=== PATIENT | male | born 1940 | race Caucasian/White ===

== ENCOUNTER → 2016-07-08 | Day surgery (SDC) | payer MEDICARE, OTHER ==
[~2016-07-08] MED LIST: ADVA115A PO; ASPI81 PO; ATEN-102 PO; BETH10 PO; DEXI30CA2 PO; DIOV320T PO; HYDR50TA5 PO; LACTATED RINGER'S 1000 ML INJ 1,000 ML ONE; LOTR10CA PO; ONABOTULINUMTOXINA INJ 100 UNITS/VIAL ONE; PROPOFOL 200 MG/20 ML AMP IV ONE; RANI150T PO; RAPA8CAP OR; SODIUM CHLORIDE 0.9% INJ 10 ML ONE; VENTAER INH
== END | disposition home or self-care (01) ==
LOC: ESDC 10:33
PROVIDERS: ATTEND Internal Medicine Gastroenterology
DX: R13.10 Dysphagia, unspecified (principal); K63.89 Other specified diseases of intestine; K22.2 Esophageal obstruction; K31.84 Gastroparesis; K44.9 Diaphragmatic hernia without obstruction or gangrene
CPT/HCPCS: 00740; 43236; 43239; 43248; 88305; J0585; J3010; J7120

== ENCOUNTER → 2017-09-08 | Day surgery (SDC) | payer MEDICARE, OTHER ==
[~2017-09-08] MED LIST changes: -LACTATED RINGER'S 1000 ML INJ 1,000 ML ONE; -PROPOFOL 200 MG/20 ML AMP IV ONE; +PROPOFOL 500 MG/50 ML BTL IV ONE
--- NOTE | 2017-09-08 11:13 | GIPROC ---
[facility] [address] [facility], [address] COLONOSCOPY PROCEDURE REPORT EXAM DATE: 09/08/2017 PATIENT NAME: Zander Haro MR #: [id number] BIRTHDATE: 1940 ENDOSCOPIST: Megan Hernandez MD ORDER #: [id number] PELLET PRESS OPERATOR: Karin Lewis RN STATUS: outpatient INDICATIONS: The patient is a 77 yr old male here for a colonoscopy due to history of colon polyps PROCEDURE PERFORMED: Colonoscopy with biopsy MEDICATIONS: None and Per Anesthesia. PREP QUALITY: suboptimal PREP TYPE:Other: ESTIMATED BLOOD LOSS: None CONSENT: The patient understands the risks and benefits of the procedure and understands that these risks include, but are not limited to: sedation, allergic reaction, infection, perforation and/or bleeding. Alternative means of evaluation and treatment include, among others: physical exam, x-rays, and/or surgical intervention. The patient elects to proceed with this endoscopic procedure. medical equipment was checked for proper function. Hand hygiene and appropriate measures for infection prevention was taken. After the risks, benefits and alternatives of the procedure were thoroughly explained, Informed consent was verified, confirmed and timeout was successfully executed by the treatment team. A digital exam revealed external hemorrhoids The EC-3890Li ([id number]) endoscope was introduced through the anus and advanced to the cecum, which was identified by both the appendix and ileocecal valve. The instrument was then slowly withdrawn as the colon was fully examined. 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 Retroflexed views revealed internal hemorrhoids and Retroflexed views revealed medium internal hemorrhoids The scope was then completely withdrawn from the patient and the procedure terminated. PROCEDURE WITHDRAWAL TIME:10minutes ADVERSE EVENTS: There were no complications. IMPRESSIONS: 1. 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 Retroflexed views revealed internal hemorrhoids 3. Retroflexed views revealed medium internal hemorrhoids 4. Revealed external hemorrhoids RECOMMENDATIONS: 1. Await biopsy results. Biopsy results will not be ready for 7-10 days. If you don't hear from us in two weeks, call our office for results. 2. Benefiber 2 tsp daily 3. Probiotics from any [employer] or health food store 4. Yearly rectal exams RECALL: Return 5 years Colonoscopy eus pending biopsy report, we will review old report Megan Hernandez MD eSigned: Megan Hernandez MD 09/08/2017 11:12 AM cc: Danuta Riley [facility] Dio Ambrosio M.D.
--- NOTE | 2017-09-08 11:17 | GIPROC ---
[facility] [address] [facility], [address] EGD PROCEDURE REPORT EXAM DATE: 09/08/2017 PATIENT NAME: Zander Haro MR #: [id number] BIRTHDATE: 1940 ATTENDING: Megan Hernandez MD ORDER #: [id number] SUPERVISOR LOOPING: STATUS: outpatient INDICATIONS: The patient is a 77 yr old male here for an EGD due to gastroparesis history of esophageal cancer s/p gastric pullup PROCEDURE PERFORMED: EGD w/ biopsy EGD w/ directed submucosal injection(s), any substance MEDICATIONS: None and Per Anesthesia. TOPICAL ANESTHETIC: none CONSENT: The patient understands the risks and benefits of the procedure and understands that these risks include, but are not limited to: sedation, allergic reaction, infection, perforation and/or bleeding. Alternative means of evaluation and treatment include, among others: physical exam, x-rays, and/or surgical intervention. The patient elects to proceed with this endoscopic procedure. medical equipment was checked for proper function. Hand hygiene and appropriate measures for infection prevention was taken. After the risks, benefits and alternatives of the procedure were thoroughly explained, Informed consent was verified, confirmed and timeout was successfully executed by the treatment team. The patient was anesthetized with topical anesthesia and the EC-3890Li ([id number]) endoscope was introduced through the mouth and advanced to the second portion of the duodenum. Retroflexed views revealed a hiatal hernia The gastroscope was then slowly withdrawn and removed. Gastritis antrum-biopsy ulcer -9 mm-gastric body biopsy esopagitis anastomotic site gastroesophageal , old closed tract-biopsy retained food consitent with gastroparesis -agressive suction BOTOX injected 100 units in pyloric channel-25 units in each quadrant. ADVERSE EVENTS: There were no complications. IMPRESSIONS: 1. Gastritis antrum-biopsy ulcer -9 mm-gastric body biopsy esopagitis anastomotic site gastroesophageal , old closed tract-biopsy retained food consitent with gastroparesis -agressive suction BOTOX injected 100 units in pyloric channel-25 units in each quadrant 2. Retroflexed views revealed a hiatal hernia RECOMMENDATIONS: 1. Await biopsy results. Biopsy results will not be ready for 7-10 days. If you don't hear from us in two weeks, call our office for biopsy results. 2. Anti-reflux regimen 3. Continue PPI 4. Avoid NSAIDS PATIENT CONDITION: stable DISPOSITION: Home REPEAT EXAM: Return 8 weeks EGD Megan Hernandez MD eSigned: Megan Hernandez MD 09/08/2017 11:17 AM cc: Danuta Riley [facility] Namita Ambrosio M.D. PATIENT NAME: EstrellitaZander MR#: [id number]
== END | disposition home or self-care (01) ==
LOC: ESDC 07:40
PROVIDERS: ATTEND Internal Medicine Gastroenterology
DX: Z12.11 Encounter for screening for malignant neoplasm of colon (principal); Z86.010 Personal history of colon polyps; K64.4 Residual hemorrhoidal skin tags; K57.30 Diverticulosis of large intestine without perforation or abscess without bleeding; K64.8 Other hemorrhoids; D17.79 Benign lipomatous neoplasm of other sites; K31.84 Gastroparesis; Z85.01 Personal history of malignant neoplasm of esophagus; K44.9 Diaphragmatic hernia without obstruction or gangrene; K29.70 Gastritis, unspecified, without bleeding; K25.9 Gastric ulcer, unspecified as acute or chronic, without hemorrhage or perforation; K20.9 Esophagitis, unspecified
CPT/HCPCS: 00813; 43236; 43239; 45380; 88305; 88312; J0585; J3010